=== PATIENT | male | born 1960 | race Two or more races ===

== ENCOUNTER 2019-11-19 11:28 | Observation (INO) | payer BC ==
[2019-11-19] MEDS ORDERED: NITROGLYCERIN OINT 1 INCH/GM PACKET TOPICAL STA (11:56)
[2019-11-19] MEDS ORDERED: ASPIRIN 81 MG PO STA (11:56)
--- NOTE | 2019-11-19 12:06 | ED ---
General Adult HPI - General Chief complaint: Chest Pain Stated complaint: chest pressure Time Seen by Provider: 11/19/19 11:35 Source: patient, RN notes reviewed, old records reviewed Mode of arrival: ambulatory Limitations: no limitations - History of Present Illness Initial comments: This a 59-year-old male who presents emergency Department complaining of chest pressure. Patient states she's had it just over a week. Patient states his chest pain gets worse sometimes but does not appear to be secondary to exertion. Patient denies any shortness of breath or difficulty breathing. Patient denies any palpitation. Patient denies any recent fever chills or cough per patient denies any abdominal pain patient denies nausea vomiting diarrhea. - Related Data Home Medications Medication Instructions Recorded Confirmed No Known Home Medications 11/19/19 11/19/19 Allergies Allergy/AdvReac Type Severity Reaction Status Date / Time No Known Allergies Allergy Verified 11/19/19 12:23 Review of Systems ROS Statement: Those systems with pertinent positive or pertinent negative responses have been documented in the HPI. ROS Other: All systems not noted in ROS Statement are negative. Past Medical History Past Medical History: No Reported History History of Any Multi-Drug Resistant Organisms: None Reported Past Surgical History: No Surgical Hx Reported Past Psychological History: No Psychological Hx Reported Smoking Status: Former smoker Past Alcohol Use History: Rare Past Drug Use History: None Reported General Exam - General Exam Comments Initial Comments: GENERAL: Patient is well-developed and well-nourished. Patient is nontoxic and well- hydrated and is in mild distress. ENT: Neck is soft and supple. No significant lymphadenopathy is noted. Oropharynx is clear. Moist mucous membranes. Neck has full range of motion without elicit ing any pain. EYES: The sclera were anicteric and conjunctiva were pink and moist. Extraocular mo vements were intact and pupils were equal round and reactive to light. Eyelids were unremarkable. PULMONARY: Unlabored respirations. Good breath sounds bilaterally. No audible rales rhonchi or wheezing was noted. CARDIOVASCULAR: There is a regular rate and rhythm without any murmurs gallops or rubs. ABDOMEN: Soft and nontender with normal bowel sounds. SKIN: Skin is clear with no lesions or rashes and otherwise unremarkable. NEUROLOGIC: Patient is alert and oriented x3. Cranial nerves II through XII are grossly intact. Motor and sensory are also intact. Normal speech, volume and content. Symmetrical smile MUSCULOSKELETAL: Normal extremities with adequate strength and full range of motion. LYMPHATICS: No significant lymphadenopathy is noted PSYCHIATRIC: Normal psychiatric evaluation. Limitations: no limitations Course Vital Signs 11/19/19 11/19/19 11:34 11:57 Temperature 98 F Pulse Rate 68 Pulse Rate [ 87 Apical] Respiratory 18 Rate Blood Pressure 126/83 O2 Sat by Pulse 99 Oximetry Medical Decision Making - Medical Decision Making EKG shows normal sinus rhythm at 61 bpm UT interval is 182 QRS 102 QT interval 424 QTC is 436. Patient's EKG shows no no ST segment elevation or depression. Chest x-ray was reviewed and showed no acute abnormality. Patient had Nitropaste and aspirin did not however help his pain. I spoke with Dr. Barragan he wanted the patient admitted admitted the patient I consult cardiology - Lab Data Result diagrams: 11/19/19 11:56 11/19/19 11:56 Lab Results 11/19/19 11/19/19 11/19/19 Range/Units 11:56 11:56 11:56 WBC 5.2 (3.8-10.6) k/uL RBC 5.41 (4.30-5.90) m/uL Hgb 15.6 (13.0-17.5) gm/dL Hct 46.5 (39.0-53.0) % MCV 85.9 (80.0-100.0) fL MCH 28.8 (25.0-35.0) pg MCHC 33.6 (31.0-37.0) g/dL RDW 13.2 (11.5-15.5) % Plt Count 194 (150-450) k/uL Neutrophils % 59 % Lymphocytes % 30 % Monocytes % 5 % Eosinophils % 3 % Basophils % 1 % Neutrophils # 3.0 (1.3-7.7) k/uL Lymphocytes # 1.5 (1.0-4.8) k/uL Monocytes # 0.3 (0-1.0) k/uL Eosinophils # 0.2 (0-0.7) k/uL Basophils # 0.0 (0-0.2) k/uL PT 11.1 (9.0-12.0) sec INR 1.1 (<1.2) APTT 23.8 (22.0-30.0) sec Sodium 140 (137-145) mmol/L Potassium 4.4 (3.5-5.1) mmol/L Chloride 108 H (98-107) mmol/L Carbon Dioxide 25 (22-30) mmol/L Anion Gap 7 mmol/L BUN 18 (9-20) mg/dL Creatinine 0.81 (0.66-1.25) mg/dL Est GFR (CKD-EPI)AfAm >90 (>60 ml/min/1.73 sqM) Est GFR (CKD-EPI)NonAf >90 (>60 ml/min/1.73 sqM) Glucose 103 H (74-99) mg/dL Calcium 9.0 (8.4-10.2) mg/dL Magnesium 1.9 (1.6-2.3) mg/dL Total Bilirubin 0.6 (0.2-1.3) mg/dL AST 24 (17-59) U/L ALT 15 (4-49) U/L Alkaline Phosphatase 53 (38-126) U/L Troponin I (0.000-0.034) ng/mL Total Protein 7.5 (6.3-8.2) g/dL Albumin 4.5 (3.5-5.0) g/dL 11/19/19 Range/Units 11:56 WBC (3.8-10.6) k/uL RBC (4.30-5.90) m/uL Hgb (13.0-17.5) gm/dL Hct (39.0-53.0) % MCV (80.0-100.0) fL MCH (25.0-35.0) pg MCHC (31.0-37.0) g/dL RDW (11.5-15.5) % Plt Count (150-450) k/uL Neutrophils % % Lymphocytes % % Monocytes % % Eosinophils % % Basophils % % Neutrophils # (1.3-7.7) k/uL Lymphocytes # (1.0-4.8) k/uL Monocytes # (0-1.0) k/uL Eosinophils # (0-0.7) k/uL Basophils # (0-0.2) k/uL PT (9.0-12.0) sec INR (<1.2) APTT (22.0-30.0) sec Sodium (137-145) mmol/L Potassium (3.5-5.1) mmol/L Chloride (98-107) mmol/L Carbon Dioxide (22-30) mmol/L Anion Gap mmol/L BUN (9-20) mg/dL Creatinine (0.66-1.25) mg/dL Est GFR (CKD-EPI)AfAm (>60 ml/min/1.73 sqM) Est GFR (CKD-EPI)NonAf (>60 ml/min/1.73 sqM) Glucose (74-99) mg/dL Calcium (8.4-10.2) mg/dL Magnesium (1.6-2.3) mg/dL Total Bilirubin (0.2-1.3) mg/dL AST (17-59) U/L ALT (4-49) U/L Alkaline Phosphatase (38-126) U/L Troponin I <0.012 (0.000-0.034) ng/mL Total Protein (6.3-8.2) g/dL Albumin (3.5-5.0) g/dL Disposition Clinical Impression: Chest pain Disposition: ADMITTED IP TO THIS HOSP Referrals: Ru Pagan MD [Primary Care Provider] - 1-2 days Time of Disposition: 12:55
[2019-11-19 12:09] LABS: Basophils % (A) 1 %; Eosinophils # (A) 0.2 k/uL (0-0.7); Eosinophils % (A) 3 %; HCT 46.5 % (39.0-53.0); HGB 15.6 gm/dL (13.0-17.5); Lymphocytes # (A) 1.5 k/uL (1.0-4.8); Lymphocytes % (A) 30 %; MCH 28.8 pg (25.0-35.0); MCHC 33.6 g/dL (31.0-37.0); MCV 85.9 fL (80.0-100.0); Mean Platelet Volume 7.3; Monocytes # (A) 0.3 k/uL (0-1.0); Monocytes % (A) 5 %; Neutrophils % (A) 59 %; Platelet Count 194 k/uL (150-450); RBC 5.41 m/uL (4.30-5.90); RDW 13.2 % (11.5-15.5); WBC 5.2 k/uL (3.8-10.6)
[2019-11-19 12:18] LABS: ALT 15 U/L (4-49); AST 24 U/L (17-59); African American GFR (CKD) >90 (>60 ml/min/1.73 sqM); Albumin 4.5 g/dL (3.5-5.0); Alkaline Phosphatase 53 U/L (38-126); Anion Gap 7 mmol/L; Blood Urea Nitrogen 18 mg/dL (9-20); Carbon Dioxide 25 mmol/L (22-30); Chloride 108 mmol/L (98-107); Glucose 103 mg/dL (74-99); Magnesium 1.9 mg/dL (1.6-2.3); Non-African American GFR(CKD) >90 (>60 ml/min/1.73 sqM); Potassium 4.4 mmol/L (3.5-5.1); Sodium 140 mmol/L (137-145); Total Bilirubin 0.6 mg/dL (0.2-1.3); Total Protein 7.5 g/dL (6.3-8.2)
[2019-11-19 12:27] LABS: INR 1.1 (<1.2); Partial Thromboplastin Time 23.8 sec (22.0-30.0); Prothrombin Time 11.1 sec (9.0-12.0)
[2019-11-19] MEDS ORDERED: NITROGLYCERIN SL TABS 0.4 MG TAB SUBLINGUAL PRN (12:55)
--- NOTE | 2019-11-19 15:33 | P.CRDCN ---
History of Present Illness Consult date: 11/19/19 Requesting physician: Ru Pagan Reason for Consult (text): chest pain Chief complaint: chest pain History of present illness: This is a 63-year-old gentleman with no significant past medical history, no history of diabetes no history of hypertension and no history of hyperlipidemia. Also no history of CAD. He Is a former smoker. Presented to the emergency department with complaints of chest pain that has been ongoing for about a week. The pain does get more and less intense at times but he cannot wait any aggravating or relieving factors. No tenderness to palpation. No change in the pain with positioning. No change in the pain with deep inspiration or movements. No change in the pain with exertion. EKG on admission showed sinus rhythm with artifact but no evidence of acute ischemia. No signs have been stable. Reevaluation showed normal CBC, BUN 18, creatinine 0.81 and troponins negative 1. He's been initiated on Nitropaste. He is on no medications at home. He's had no complaints of shortness of breath, orthopnea, PND, edema, nausea, vomiting, diarrhea, palpitations, dizziness or syncope. He denies any recent illness. Past Medical History Past Medical History: No Reported History History of Any Multi-Drug Resistant Organisms: None Reported Past Surgical History: No Surgical Hx Reported Past Psychological History: No Psychological Hx Reported Smoking Status: Former smoker Past Alcohol Use History: Rare Past Drug Use History: None Reported Medications and Allergies Home Medications Medication Instructions Recorded Confirmed Type No Known Home Medications 11/19/19 11/19/19 History Allergies Allergy/AdvReac Type Severity Reaction Status Date / Time No Known Allergies Allergy Verified 11/19/19 12:23 Physical Exam Vitals: Vital Signs Temp Pulse Pulse Resp BP Pulse Ox 11/19/19 13:55 77 16 109/84 96 11/19/19 11:57 87 11/19/19 11:34 98 F 68 18 126/83 99 Intake and Output 11/19/19 11/19/19 11/19/19 06:59 14:59 22:59 Other: Weight 99.79 kg PHYSICAL EXAMINATION: This is a 59-year-old male in no apparent distress at the time of my examination. VITAL SIGNS: Blood pressure 109/84, heart rate 77, respirations 16, temp 98F. Patient is 96 % on room air. HEENT: Head is atraumatic, normocephalic. Pupils are equal, round. Sclerae anicteric. Conjunctivae are clear. Mucous membranes of the mouth are moist. Neck is supple. There is no elevated jugular venous pressure. No carotid bruit is heard. CHEST EXAMINATION: Clear to auscultation bilaterally. No wheezes rales or rhonchi. Respirations even and nonlabored. HEART EXAMINATION: Heart regular, positive S1 and S2. No S3. No S4. No clicks, rubs or murmurs. ABDOMEN: Soft, nontender. Bowel sounds are heard. No organomegaly noted. EXTREMITIES: 2+ peripheral pulses with no evidence of peripheral edema and no calf tenderness noted. NEUROLOGIC EXAMINATION: Patient is awake, alert and oriented x3. Results 11/19/19 11:56 11/19/19 11:56 Cardiac Enzymes 11/19/19 11/19/19 Range/Units 11:56 11:56 AST 24 (17-59) U/L Troponin I <0.012 (0.000-0.034) ng/mL Coagulation 11/19/19 Range/Units 11:56 PT 11.1 (9.0-12.0) sec APTT 23.8 (22.0-30.0) sec CBC 11/19/19 Range/Units 11:56 WBC 5.2 (3.8-10.6) k/uL RBC 5.41 (4.30-5.90) m/uL Hgb 15.6 (13.0-17.5) gm/dL Hct 46.5 (39.0-53.0) % Plt Count 194 (150-450) k/uL Comprehensive Metabolic Panel 11/19/19 Range/Units 11:56 Sodium 140 (137-145) mmol/L Potassium 4.4 (3.5-5.1) mmol/L Chloride 108 H (98-107) mmol/L Carbon Dioxide 25 (22-30) mmol/L BUN 18 (9-20) mg/dL Creatinine 0.81 (0.66-1.25) mg/dL Glucose 103 H (74-99) mg/dL Calcium 9.0 (8.4-10.2) mg/dL AST 24 (17-59) U/L ALT 15 (4-49) U/L Alkaline Phosphatase 53 (38-126) U/L Total Protein 7.5 (6.3-8.2) g/dL Albumin 4.5 (3.5-5.0) g/dL Current Medications Generic Name Dose Route Start Last Admin Trade Name Freq PRN Reason Stop Dose Admin Aspirin 325 mg 11/20/19 09:00 Aspirin 325 Mg Tab PO DAILY BENIGNO Nitroglycerin 0.4 mg 11/19/19 12:55 Nitroglycerin Sl Tabs 0.4 Mg Tab SUBLINGUAL Q5M PRN Chest Pain Nitroglycerin 1 inch 11/19/19 18:00 Nitroglycerin Oint 1 Inch/Gm Packet TOPICAL Q6HR BENIGNO Intake and Output 11/19/19 11/19/19 11/19/19 06:59 14:59 22:59 Other: Weight 99.79 kg Patient Weight 11/20/19 06:59 Weight 99.79 kg 11/19/19 11:56 11/19/19 11:56 Assessment and Plan Assessment: #1 symptoms of persistent chest pain, atypical for acute coronary syndrome, first troponin negative 1. #2 ex-smoker Plan: From conservation specialist perspective, we will continue to trend the troponins. Ambulate the patient. We will reassess him in the morning and provide further recommendations accordingly. STRUCTURAL STEEL DETAILER note has been reviewed, I agree with a documented findings and plan of care. Patient was seen and examined.
[2019-11-19] MEDS: NITROGLYCERIN OINT 1 INCH/GM PACKET TOPICAL SCH (17:00)
--- NOTE | 2019-11-19 22:57 | P.HPIM ---
History of Present Illness H&P Date: 11/19/19 Chief Complaint: Chest pain History of presenting complaint: This is a very pleasant 59-year-old patient of Dr. Ru Pagan. Unremarkable possible history. Rather active up and about. Patient for about few days has been having episodes of central chest pressure. Sometimes dull sometimes sharp. Not related to activity. Not worse with deep breathing. Sometimes worse with movement. No fever no chills. No cough. No prior cardiac history. No reflux symptoms. 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 EYES: Pupils equal. Conjunctiva normal. HEENT: External appearance of nose and ears normal, oral cavity grossly normal. NECK: JVD not raised; masses not palpable. HEART: First and second heart sounds are normal; no edema. LUNGS: Respiratory rate normal; clear to auscultation. ABDOMEN: Soft, nontender, liver spleen not palpable, no masses palpable. PSYCH: Alert and oriented x3; mood and affect normal. NEUROLOGICAL: Cranial nerves grossly intact; no facial asymmetry, power and sensation grossly intact. LYMPHATICS: No lymph nodes palpable in the axilla and neck INVESTIGATIONS, reviewed in the clinical context: White count 5.2 hemoglobin 15.6 platelets 194 potassium 4.4 creatinine 0.81 Troponin I 3 negative EKG tracing personally reviewed by me-normal sinus rhythm, poor quality of EKG Assessment: -Anterior chest wall pain present for a few days. Not related to activity. No exacerbating or relieving factors. Noticed pretty component. Denies history of reflux symptoms. Most likely muscular skeletal. Rule out a cardiac cause. Plan: Patient started on aspirin, Nitro-Bid. Cardiology consulted. Care discussed with the patient. Lovenox for DVT prophylaxis. Past Medical History Past Medical History: No Reported History History of Any Multi-Drug Resistant Organisms: None Reported Past Surgical History: No Surgical Hx Reported Past Psychological History: No Psychological Hx Reported Smoking Status: Former smoker Past Alcohol Use History: Rare Past Drug Use History: None Reported Medications and Allergies Home Medications Medication Instructions Recorded Confirmed Type No Known Home Medications 11/19/19 11/19/19 History Allergies Allergy/AdvReac Type Severity Reaction Status Date / Time No Known Allergies Allergy Verified 11/19/19 12:23 Physical Exam Vitals: Vital Signs Temp Pulse Pulse Pulse Resp BP BP 11/19/19 20:00 98 F 75 17 123/68 11/19/19 15:00 97.8 F 87 71 16 120/66 11/19/19 13:55 77 16 109/84 11/19/19 12:55 11/19/19 11:57 87 11/19/19 11:34 98 F 68 18 126/83 Pulse Ox 11/19/19 20:00 98 11/19/19 15:00 97 11/19/19 13:55 96 11/19/19 12:55 98 11/19/19 11:57 11/19/19 11:34 99 Intake and Output 11/19/19 11/19/19 11/19/19 06:59 14:59 22:59 Other: # Voids 2 2 Weight 99.79 kg Results CBC & Chem 7: 11/19/19 11:56 11/19/19 11:56 Labs: Abnormal Lab Results - Last 24 Hours (Table) 11/19/19 Range/Units 11:56 Chloride 108 H (98-107) mmol/L Glucose 103 H (74-99) mg/dL Thrombosis Risk Factor Assmnt - Choose All That Apply Each Factor Represents 1 point: Age 41-60 years Other Risk Factors: No Thrombosis Risk Factor Assessment Total Risk Factor Score: 1 Thrombosis Risk Factor Assessment Level: Low Risk
[2019-11-20] MEDS: NITROGLYCERIN OINT 1 INCH/GM PACKET TOPICAL SCH ×2 (00:46→06:48)
[2019-11-20 02:56] LABS: Cholesterol 179 mg/dL (<200); HDL Cholesterol 41 mg/dL (40-60); LDL Cholesterol,Calculated 126 mg/dL (0-99); Triglycerides 62 mg/dL (<150)
[2019-11-20] MEDS: ASPIRIN 325 MG TAB PO SCH (08:02)
--- NOTE | 2019-11-20 09:54 | P.PN ---
Subjective Progress Note Date: 11/20/19 This is a 63-year-old gentleman with no significant past medical history, no history of diabetes no history of hypertension and no history of hyperlipidemia. Also no history of CAD. He Is a former smoker. Presented to the emergency department with complaints of chest pain that has been ongoing for about a week. The pain does get more and less intense at times but he cannot wait any aggravating or relieving factors. No tenderness to palpation. No change in the pain with positioning. No change in the pain with deep inspiration or movements. No change in the pain with exertion. EKG on admission showed sinus rhythm with artifact but no evidence of acute ischemia. No signs have been stable. Reevaluation showed normal CBC, BUN 18, creatinine 0.81 and troponins negative 1. He's been initiated on Nitropaste. He is on no medications at home. He's had no complaints of shortness of breath, orthopnea, PND, edema, nausea, vomiting, diarrhea, palpitations, dizziness or syncope. He denies any recent illness. 11/20/2019 The patient was seen and examined resting comfortably in bed. He continues to complain of chest discomfort, mild, constant with no relieving or aggravating factors. He was noted to have elevated LDL at 126 with a 10 year ASCVD risk of 7.4%. Troponins were negative 3. Objective - Vital Signs Vital signs: Vital Signs Temp 97.9 F 11/20/19 08:52 Pulse 67 11/20/19 08:54 Resp 16 11/20/19 08:54 BP 110/72 11/20/19 08:52 Pulse Ox 97 11/20/19 08:52 Intake & Output 11/19/19 11/20/19 11/20/19 18:59 06:59 18:59 Weight 99.79 kg Other: # Voids 2 2 2 - Exam PHYSICAL EXAMINATION: HEENT: [Head is atraumatic, normocephalic. Pupils equal, round. Neck is supple. There is no elevated jugular venous pressure.] HEART EXAMINATION: [Heart sounds regular, S1 and S2 normal. No murmur or gallop heard.] CHEST EXAMINATION:[ Lungs are clear to auscultation. No chest wall tenderness is noted on palpation or with deep breathing.] ABDOMEN: [ Soft, nontender. Bowel sounds are heard. No organomegaly noted]. EXTREMITIES:[ 2+ peripheral pulses with no evidence of peripheral edema and no calf tenderness noted]. NEUROLOGIC [patient is awake, alert and oriented x3.] . - Labs CBC & Chem 7: 11/19/19 11:56 11/19/19 11:56 Labs: Abnormal Lab Results - Last 24 Hours (Table) 11/19/19 11/19/19 Range/Units 11:56 11:56 Chloride 108 H (98-107) mmol/L Glucose 103 H (74-99) mg/dL LDL Cholesterol, Calc 126 H (0-99) mg/dL Assessment and Plan Assessment: #1 symptoms of persistent chest pain, atypical for acute coronary syndrome, troponin negative 3. #2 ex-smoker #3 hyperlipidemia with a 10 year ASCVD risk of 7.4% Plan: From card lacer jacquard perspective, we will schedule the patient for a exercise stress echo to be done tomorrow morning. Based on the findings further recommendations will be made. LITERACY CONSULTANT note has been reviewed, I agree with a documented findings and plan of care. Patient was seen and examined.
--- NOTE | 2019-11-20 14:21 | P.PN ---
Progress Note - Text Progress Note Date: 11/20/19 Chief Complaint: Chest pain History of presenting complaint: This is a very pleasant 59-year-old patient of Dr. Ru Pagan. Unremarkable possible history. Rather active up and about. Patient for about few days has been having episodes of central chest pressure. Sometimes dull sometimes sharp. Not related to activity. Not worse with deep breathing. Sometimes worse with movement. No fever no chills. No cough. No prior cardiac history. No reflux symptoms. Today-Nitropaste was discontinued. Had some more chest pain. Plan to for stress test tomorrow. Otherwise sitting up comfortable. Review of systems: Was done for constitutional, cardiovascular, GI, pulmonary. relevant finding as above Active Medications Aspirin (Aspirin 325 Mg Tab) 325 mg PO DAILY BENIGNO Last Admin: 11/20/19 08:02 Dose: 325 mg Documented by: Nitroglycerin (Nitroglycerin Sl Tabs 0.4 Mg Tab) 0.4 mg SUBLINGUAL Q5M PRN PRN Reason: Chest Pain Physical examination: VITAL SIGNS: 97.9, 67, 16, 110/72, 97% room air GENERAL: Sitting up in a chair, comfortable. EYES: Pupils equal. Conjunctiva normal. NECK: JVD not raised; masses not palpable. HEART: First and second heart sounds are normal; no edema. LUNGS: Respiratory rate normal; clear to auscultation. ABDOMEN: Soft, nontender, liver spleen not palpable, no masses palpable. PSYCH: Alert and oriented x3; mood and affect normal. INVESTIGATIONS, reviewed in the clinical context: White count 5.2 hemoglobin 15.6 platelets 194 potassium 4.4 creatinine 0.81 Troponin I 3 negative EKG tracing personally reviewed by me-normal sinus rhythm, poor quality of EKG Assessment: -Anterior chest wall pain present for a few days. Not related to activity. No exacerbating or relieving factors. Noticed pretty component. Denies history of reflux symptoms. Most likely muscular skeletal. Rule out a cardiac cause. Plan: on aspirin, stress test is been ordered for tomorrow. Discussed with patient..
[2019-11-21 04:15] VITALS: RESP 16
[2019-11-21 07:31] VITALS: BP 112/75; PULSE 64; TEMP 97.8
--- NOTE | 2019-11-21 10:35 | P.PN ---
Subjective Progress Note Date: 11/21/19 This is a pleasant 59-year-old gentleman with no significant past medical history, no history of diabetes, no history of hypertension, no hyperlipidemia, no history of coronary artery disease. Patient is a former smoker. He presented to the hospital with symptoms of chest discomfort which have been occurring off and on for approximately one week duration. He was seen in Consultation yesterday by Dr. Patton. His troponins came back negative, EKG did not show any significant changes. He was recommended today to undergo stress echocardiographic study. The patient was seen and examined this morning, denied any chest pain or difficulty in breathing. Hemodynamically stable. Blood pressure 112/70 with a heart rate in the 60s, 95% on room air. Objective - Vital Signs Vital signs: Vital Signs Temp 97.8 F 11/21/19 07:26 Pulse 64 11/21/19 07:26 Resp 16 11/21/19 07:26 BP 112/75 11/21/19 07:26 Pulse Ox 95 11/21/19 07:26 Intake & Output 11/20/19 11/21/19 11/21/19 18:59 06:59 18:59 Other: # Voids 2 1 - Exam PHYSICAL EXAMINATION: GENERAL: 59-year-old gentleman in no acute distress at the time of my examination HEENT: Head is atraumatic, normocephalic. Pupils equal, round. Sclera anicteric. Conjunctiva are clear. Mucous membranes of the mouth are moist. Neck is supple. There is no elevated jugular venous pressure. No carotid bruit is heard. HEART EXAMINATION: Heart S1, S2 normal. No murmur or gallop heard. CHEST EXAMINATION: Lungs are clear to auscultation and precussion. No chest wall tenderness is noted on palpation or with deep breathing. ABDOMEN: Soft, nontender. Bowel sounds are heard. No organomegaly noted. EXTREMITIES: 2+ peripheral pulses with no evidence of peripheral edema and no calf tenderness noted. NEUROLOGIC patient is awake, alert and oriented 3. . - Labs CBC & Chem 7: 11/19/19 11:56 11/19/19 11:56 Assessment and Plan Plan: Assessment and plan #1 symptoms of persistent chest pain, atypical for acute coronary syndrome, troponin negative 3. #2 ex-smoker #3 hyperlipidemia with a 10 year ASCVD risk of 7.4% Plan Patient will undergo an echocardiogram as well as a stress echocardiographic study today. Further recommendations will be based on the findings of these tests and the patient's overall clinical course. DNP note has been reviewed, I agree with a documented findings and plan of care. Patient was seen and examined.
[2019-11-21] MEDS: ASPIRIN 325 MG TAB PO SCH (12:44)
--- NOTE | 2019-11-21 13:31 | ECHOF ---
Referral Reason:chest pain MEASUREMENTS -------- HEIGHT: 182.9 cm WEIGHT: 99.8 kg BP: 98/53 RVIDd: 3.5 cm (< 3.3) IVSd: 1.1 cm (0.6 - 1.1) LVIDd: 3.6 cm (3.9 - 5.3) LVPWd: 1.2 cm (0.6 - 1.1) IVSs: 1.4 cm LVIDs: 2.5 cm LVPWs: 1.8 cm LAESV Index (A-L): 19.45 ml/m Ao Diam: 4.0 cm (2.0 - 3.7) AV Cusp: 2.3 cm (1.5 - 2.6) MV EXCURSION: 24.216 mm (> 18.000) MV EF SLOPE: 76 mm/s (70 - 150) EPSS: 1.2 cm MV E Kai: 0.69 m/s MV DecT: 197 ms MV A Kai: 0.92 m/s MV E/A Ratio: 0.74 RAP: 5.00 mmHg RVSP: 20.01 mmHg FINDINGS -------- This was a technically adequate study. The left ventricular size is normal. There is borderline concentric left ventricular hypertrophy. Overall left ventricular systolic function is normal with, an EF between 55 - 60 %. The diastolic filling pattern is normal for the age of the patient 10.34. The right ventricle is mildly enlarged. Normal LA size by volume 22+/-6 ml/m2. The right atrial size is normal. Interatrial and interventricular septum intact. The aortic valve is trileaflet and appears structurally normal. There is no evidence of aortic regu rgitation. There is no evidence of aortic stenosis. No mitral regurgitation. Mild tricuspid regurgitation present. There is no evidence of pulmonary hypertension. The right v entricular systolic pressure, as measured by Doppler, is 20.01mmHg. There is no pulmonic regurgitation present. The aortic root and ascending aorta are dilated measuring up to (4) cm. There is no pericardial effusion. CONCLUSIONS -------- 1. The left ventricular size is normal. 2. There is borderline concentric left ventricular hypertrophy. 3. Overall left ventricular systolic function is normal with, an EF between 55 - 60 %. 4. The right ventricle is mildly enlarged. 5. Mild tricuspid regurgitation present. 6. The aortic root and ascending aorta are dilated measuring up to (4) cm. SENSITOMETRIST: Marlin Arcos RDCS
--- NOTE | 2019-11-21 14:09 | EST ---
EXERCISE STRESS DATE OF SERVICE: 11/21/2019 AGE: 59 SEX: M HT: 72" WT: 220 lbs PROTOCOL: Stress Echo STAGE: 4 DURATION OF EXERCISE: 10 minutes HEART RATE REST: 67 BLOOD PRESSURE REST: 98/53 MAXIMUM HEART RATE ACHIEVED: 152 MAXIMUM BLOOD PRESSURE: 173/85 85% MPHR: 138 100% MPHR: 162 METS: 11.7 INDICATIONS: Chest pain. STRESS DATA: Heart rate is 67, pressure 98/53 mmHg. Baseline EKG showed sinus mechanism. The patient exercised on the treadmill according to Noe protocol for a total of 10 minutes and achieved 11.7 METS. Max heart rate was 152 which is about 94% of maximum predicted heart rate. Maximum blood pressure was 168/82 mmHg. Clinically the patient did not have any symptoms of chest pain or chest discomfort. The EKG did not show any significant ST or T-wave abnormalities concerning for ischemia. ANALYSIS: On echocardiogram images from parasternal long axis view, parasternal short axis view, apical 4 chamber and apical 2 chamber were obtained as the baseline images, at the peak of the heart rate as well as on recovery and the echocardiogram images showed good augmentation in the left ventricular systolic function. CONCLUSION: 1. Excellent exercise tolerance. 2. Normal EKG in response to exercise. 3. Normal echocardiogram in response to exercise. 4. Essentially normal stress test for the patient. MMODL / IJN: [id number] /
--- NOTE | 2019-11-21 22:27 | P.DS ---
Providers Date of admission: 11/21/19 13:49 Expected date of discharge: 11/21/19 Attending physician: Bradley Barragan Consults: 11/19/19 12:55 Consult Physician Urgent Consulting Provider: [facility] Consult Reason/Comments: Chest pain Do you want consulting provider notified?: Yes Primary care physician: Ru Pagan [facility] Course: Chief Complaint: Chest pain History of presenting complaint: This is a very pleasant 59-year-old patient of Dr. Ru Pagan. Unremarkable possible history. Rather active up and about. Patient for about few days has been having episodes of central chest pressure. Sometimes dull sometimes sharp. Not related to activity. Not worse with deep breathing. Sometimes worse with movement. No fever no chills. No cough. No prior cardiac history. No reflux symptoms. Today-underwent a stress echocardiogram. Negative for any wall motion abnormality. [place] to have costochondritis. Results discussed with patient and the at the bedside. Consultation: Dr. Patton from cardiology Physical examination: VITAL SIGNS: 97.8, 64, 16, 112/75, 95% room air GENERAL: Sitting up in a chair, comfortable. EYES: Pupils equal. Conjunctiva normal. NECK: JVD not raised; masses not palpable. HEART: First and second heart sounds are normal; no edema. LUNGS: Respiratory rate normal; clear to auscultation. ABDOMEN: Soft, nontender, liver spleen not palpable, no masses palpable. PSYCH: Alert and oriented x3; mood and affect normal. INVESTIGATIONS, reviewed in the clinical context: White count 5.2 hemoglobin 15.6 platelets 194 potassium 4.4 creatinine 0.81 Troponin I 3 negative EKG tracing personally reviewed by me-normal sinus rhythm, poor quality of EKG Stress echocardiogram-negative for ischemia 2-D echocardiogram-EF 55-60%. Borderline concentric LVH Assessment: -Anterior chest wall pain present for a few days. Possibly costochondritis Disposition: Home Patient Condition at Discharge: Stable Plan - Discharge Summary Discharge Rx Participant: No New Discharge Prescriptions: No Action No Known Home Medications Discharge Medication List No Known Home Medications 11/19/19 [History] Follow up Appointment(s)/Referral(s): Ru Pagan MD [Primary Care Provider] - 11/24/19 4:00 pm Patient Instructions/Handouts: Chest Pain (DC)
== END 2019-11-21 14:43 | disposition home or self-care (01) ==
LOC: EC 11:28 → 3NCARDOBS 12:55 → INTOOBSV 11-21 13:49 → OBSVTOIN 11-21 13:49 → UNDODISIN 11-21 14:43
PROVIDERS: ADMIT Hospitalist; ATTEND Hospitalist
DX: R07.89 Other chest pain (principal); E78.5 Hyperlipidemia, unspecified; Z87.891 Personal history of nicotine dependence
CPT/HCPCS: 93005 ×2; 99285; 36415; 94760; 93306; 93351; 80061; 80053; 83735; 84484; 85025; 85610; 85730; G0378 ×3